=== PATIENT | male | born 1965 | race American Indian/Alaskan Native ===

== ENCOUNTER 2016-10-26 16:25 | Emergency (ER) | payer SELFPAY ==
[2016-10-26 18:25] LABS: Basophils % (Auto) 0.3 % (0.0-1.8); Eosinophils % (Auto) 5.2 % (0.0-4.3); Hematocrit 45.5 % (35.5-45.6); Hemoglobin 15.3 gm/dl (11.8-15.2); Mean Corpuscular HGB Conc 34 % (32-34); Mean Corpuscular Hemoglobin 31 pg (28-32); Mean Corpuscular Volume 90 fl (84-94); Platelet Count 297 K/mm3 (140-440); Red Blood Count 5.03 M/mm3 (3.65-5.03); Red Cell Distribution Width 15.1 % (13.2-15.2); White Blood Count 8.8 K/mm3 (4.5-11.0)
[2016-10-26 18:36] LABS: Anion Gap 15 mmol/L; BUN/Creatinine Ratio 18.33; Blood Urea Nitrogen 11 mg/dL (9-20); Calcium 9.5 mg/dL (8.4-10.2); Carbon Dioxide 28 mmol/L (22-30); Chloride 94.9 mmol/L (98-107); Glucose 110 mg/dL (75-100); Potassium 3.3 mmol/L (3.6-5.0); Sodium 135 mmol/L (137-145)
--- NOTE | 2016-10-26 22:45 | Emergency Department Report ---
ED Chest Pain HPI - General Chief Complaint: Chest Pain Stated Complaint: CHEST PAIN Time Seen by Provider: 10/26/16 22:39 Source: patient Mode of arrival: Ambulatory Limitations: No Limitations - History of Present Illness Initial Comments: This is a gentleman who arrived in [facility] in September. He has not established care with a physician here in [facility] yet. He states he has noted some fullness in his right neck area over the last 2-3 days. He notes as well having some increased pains in his right chest wall and there exacerbated with movement of his right arm. He is concerned due to having a history of cardiac disease. He also reports he did have cervical discectomy done and this is at the incision site where the cervical vasectomy was performed as well. He denies any shortness of breath associated with this. States he has tried warm compress with some mild improvement of the pain. He states it was larger yesterday but it seems to have gone down in size since yesterday. He eating normally. He does give a history as well of occasional bright red blood per rectum. He was scheduled to have colonoscopy done and is former [facility] actually tomorrow but as he is not living anymore this will not be performed. Onset: during rest Pain Location: right chest Pain Radiation: RUE Quality: sharp Worsens With: movement Other Symptoms: denies: cough, fever, syncope - Related Data Previous Rx's Medication Instructions Recorded Last Taken Type oxyCODONE /ACETAMINOPHEN [Percocet 1 tab PO Q6HR PRN #20 tablet 10/26/16 Unknown Rx 5/325] Allergies Allergy/AdvReac Type Severity Reaction Status Date / Time lisinopril AdvReac Unknown Verified 10/26/16 16:42 morphine AdvReac Itching Verified 10/26/16 16:42 OBED score - Obed Score Age > 65: (0) No Aspirin use within the Past 7 Days: (1) Yes 3 or more CAD Risk Factors: (1) Yes 2 or more Angina events in past 24 hrs: (0) No Known CAD with more than 50% Stenosis: (0) No Elevated Cardiac Markers: (0) No ST Deviation Greater than 0.5mm: (0) No OBED Score: 2 ED Review of Systems ROS: Stated complaint: CHEST PAIN Other details as noted in HPI Comment: All other systems reviewed and negative Constitutional: denies: chills, fever Eyes: denies: eye pain, eye discharge, vision change ENT: denies: ear pain, throat pain Respiratory: denies: cough, shortness of breath, wheezing Cardiovascular: chest pain. denies: palpitations Endocrine: no symptoms reported Gastrointestinal: hematochezia. denies: abdominal pain, nausea, diarrhea Genitourinary: denies: urgency, dysuria Musculoskeletal: denies: back pain, joint swelling, arthralgia Skin: denies: rash, lesions Neurological: denies: headache, weakness, paresthesias Psychiatric: denies: anxiety, depression Hematological/Lymphatic: denies: easy bleeding, easy bruising ED Past Medical Hx - Past Medical History Previous Medical History?: Yes Hx Hypertension: Yes Hx Arthritis: Yes Hx Psychiatric Treatment: Yes (Anxiety) Additional medical history: TIA - Surgical History Past Surgical History?: Yes Additional Surgical History: Sage in Right leg, C6/7 fusion. Neck, Left Thumb - Social History Smoking Status: Current Every Day Smoker Substance Use Type: Alcohol - Medications Home Medications: Home Medications Medication Instructions Recorded Confirmed Last Taken Type oxyCODONE /ACETAMINOPHEN [Percocet 1 tab PO Q6HR PRN #20 tablet 10/26/16 Unknown Rx /325] ED Physical Exam - General Limitations: No Limitations General appearance: alert, in no apparent distress - Head Head exam: Present: atraumatic, normocephalic - Eye Eye exam: Present: normal appearance, EOMI. Absent: scleral icterus - ENT ENT exam: Present: normal exam, normal orophraynx, mucous membranes moist - Neck Neck exam: Present: normal inspection, other (fullness just above the clavicle in the supraclavicular notch. Mild tenderness to palpation. No bruit or thrill. No fluctuance.) - Respiratory Respiratory exam: Present: normal lung sounds bilaterally. Absent: respiratory distress, wheezes - Cardiovascular Cardiovascular Exam: Present: regular rate, normal rhythm. Absent: systolic murmur, diastolic murmur, rubs, gallop - GI/Abdominal GI/Abdominal exam: Present: soft, normal bowel sounds. Absent: tenderness, guarding - Rectal Rectal exam: Present: deferred - Extremities Exam Extremities exam: Present: normal inspection - Back Exam Back exam: Present: normal inspection. Absent: tenderness, CVA tenderness (R), CVA tenderness (L) - Neurological Exam Neurological exam: Present: alert, oriented X3 - Psychiatric Psychiatric exam: Present: normal affect, normal mood - Skin Skin exam: Present: warm, dry, intact, normal color. Absent: rash ED Course Vital Signs 10/26/16 10/26/16 16:36 23:34 Temperature 98.9 F Pulse Rate 76 67 Respiratory 22 14 Rate Blood Pressure 149/68 Blood Pressure 144/64 [Left] O2 Sat by Pulse 97 96 Oximetry - Reevaluation(s) Reevaluation #1: 10/26/16 22:39 ECG at 1631 with normal sinus rhythm at 71 bpm and a normal OH and QRS. Normal axis is noted as well. There are some nonspecific T wave abnormalities. No reciprocal started. No old. Reevaluation #2: 10/27/16 01:04 There is clearly some fullness in the base of the right neck in the supraclavicular notch compared to that of the left. It is right over the right to underlying the scar from his previous cervical discectomy. + Ultrasound demonstrates no fluid collection in this area is just soft tissue that has a sore normal echogenicity similar to that on the left side. No vascular structures are noted underlying this area as well. He clearly seems to be reproducible on palpation of the area as well as with movement of the arm and pulling sensation in the chest wall as well. I do not suspect a cardiac etiology related to the stomas chest pain at this time. It appears to be musculoskeletal in nature regards what to do for this at this point I really am not sure other than the cautious with activities and time. Patient was given several options for referral for outpatient management. I did give him referral to GI as well as he reports the rectal bleeding from time to time. He states he has not seen any rectal bleeding in a couple of weeks. His hemoglobin is stable here as is his blood pressure and heart rate. I did write for a short course for pain medication for this gentleman as well. He is otherwise stable here there is some question my mind whether there is some secondary gain for just drug seeking however he seems reasonable enough to take serious for the time being ED Medical Decision Making - Lab Data Result diagrams: 10/26/16 18:04 10/26/16 18:04 Critical care attestation.: If time is entered above; I have spent that time in minutes in the direct care of this critically ill patient, excluding procedure time. ED Disposition Clinical Impression: Chest wall pain GI bleed Qualifiers: GI bleed type/associated pathology: unspecified gastrointestinal hemorrhage type Qualified Code(s): K92.2 - Gastrointestinal hemorrhage, unspecified Disposition: DISCHARGED TO HOME OR SELFCARE Is pt being admited?: No Does the pt Need Aspirin: No Condition: Stable Additional Instructions: Consider a hot pad or cold pack to the area of discomfort on your neck. Return if worsening pains or increased size of the lesion or redness associated with there is lesion as well. I have given U several options for follow-up for a family physician. In addition I did give you referral for gastroenterology. Return if you are having increased rectal bleeding or worsening pains. Prescriptions: oxyCODONE /ACETAMINOPHEN [Percocet 5/325] 1 tab PO Q6HR PRN #20 tablet PRN Reason: Pain Referrals: KHANH CORDOVA MD [Staff Physician] - 3-5 Days [facility] [Provider Group] - 3-5 Days [facility] [Provider Group] - 3-5 Days [facility] [Provider Group] - 3-5 Days Time of Disposition: 23:02
[2016-10-26 23:36] VITALS: BP 144/64
== END 2016-10-26 23:34 | disposition home or self-care (01) ==
LOC: ED 16:25
DX: K92.2 Gastrointestinal hemorrhage, unspecified (principal); R07.89 Other chest pain; I10 Essential (primary) hypertension; F17.200 Nicotine dependence, unspecified, uncomplicated
CPT/HCPCS: 36415; 80048; 84484; 85025; 93005; 93010; 99284